=== PATIENT | female | born 1995 | race Hispanic/Latino ===

== ENCOUNTER 2022-03-10 10:44 | Inpatient (IN) | payer MEDICAID, OTHER ==
[2022-03-10] MEDS ORDERED: Ondansetron PF 4 MG/2 ML Vial IVP PRN (23:06)
[2022-03-10] MEDS ORDERED: Ibuprofen 800 MG TAB PO PRN (23:06)
[2022-03-10] MEDS ORDERED: Misoprostol 200 MCG TAB PR PRN (23:06)
[2022-03-10] MEDS ORDERED: Butorphanol Tartrate 1 MG/ML VIAL SLOW IVP PRN (23:06)
[2022-03-10] MEDS ORDERED: Acetaminophen 500 MG TAB PO PRN (23:06)
[2022-03-10] MEDS ORDERED: hydrALAZINE 20 MG/ML VIAL SLOW IVP PRN (23:06)
[2022-03-10] MEDS ORDERED: Promethazine HCl 25 MG/ML VIAL IM PRN (23:06)
[2022-03-10] MEDS ORDERED: Diphenoxylate HCl/Atropine Tablet PO PRN (23:06)
[2022-03-10] MEDS ORDERED: Carboprost 250 MCG/ML AMP IM PRN (23:06)
[2022-03-10] MEDS ORDERED: Lidocaine 1% (PF) 30 ML VIAL SC PRN (23:06)
[2022-03-10] MEDS ORDERED: Methylergonovine 0.2 MG/ML VIAL IM PRN (23:06)
[2022-03-10] MEDS ORDERED: HYDROcodone/Acetaminophen 5/325 mg Tablet PO PRN (23:06)
[2022-03-10 23:16] VITALS: BMI 37.6
[2022-03-10] MEDS: Lactated Ringer's 1,000 ML IV SCH (23:22)
[2022-03-10] MEDS ORDERED: NS w/ Oxytocin 30 units 500 ML IV SCH ×2 (23:30→23:59)
[2022-03-11] MEDS: Misoprostol 100 MCG TAB VAG SCH ×3 (00:19→17:27)
[2022-03-11 00:24] LABS: Hemoglobin 11.3 g/dL (12.0-15.5); Mean Corpuscular HGB CONC 31.8 g/dL (32.0-36.0); Mean Corpuscular Hemoglobin 26.9 pg (27.0-33.0); Mean Corpuscular Volume 84.5 fl (81.6-98.3); Mean Platelet Volume 12.9 fl (7.4-10.4); Platelet Count 223 10x3/uL (150-450); White Blood Cell (WBC) Count 8.8 10x3/uL (3.5-10.5)
[2022-03-11 00:53] LABS: Syphilis Antibody Nonreactive (Nonreactive); Syphilis Antibody Index 0.12 S/CO (<1.00 Non-Reactive)
[2022-03-11 00:54] LABS: Hep B Surf Ag Non-Reactive S/CO (NonReactive)
[2022-03-11 01:44] LABS: HBSAg Index 0.18 S/CO (0-0.99)
[2022-03-11 02:42] LABS: SARS-CoV-2 NAA Rapid Test Not Detected (NotDetected)
[2022-03-11] MEDS ORDERED: Fentanyl 2 mcg/Bup 0.1% Cadd 100 ML ONE (09:09)
[2022-03-11] MEDS ORDERED: Acetaminophen 325 MG TAB PO PRN (10:50)
[2022-03-11] MEDS ORDERED: Ondansetron PF 4 MG/2 ML Vial IVP PRN ×2 (10:50→14:09)
[2022-03-11] MEDS ORDERED: Naloxone HCl 0.4 mg/ml Vial IVP PRN ×2 (10:50)
[2022-03-11] MEDS ORDERED: Lactated Ringer's 500 ML IV PRN (10:50)
[2022-03-11] MEDS ORDERED: ePHEDrine Sulfate 50 MG/10 ML VIAL SLOW IVP PRN (10:50)
[2022-03-11] MEDS ORDERED: Moisturizing Cream (Eucerin) 113 GM JAR TOP PRN (10:50)
[2022-03-11] MEDS ORDERED: Promethazine HCl 25 MG/ML VIAL IM PRN (10:50)
[2022-03-11] MEDS ORDERED: diphenhydrAMINE 50 MG/ML VIAL IVP PRN (10:50)
[2022-03-11] MEDS ORDERED: Fentanyl 2 mcg/Bupivacaine 0.1% Cassette 100 ML EPIDURAL SCH (11:00)
[2022-03-11] MEDS ORDERED: Communication Order-Pharmacy FS SCH (11:00)
[2022-03-11] MEDS ORDERED: Fentanyl 100 MCG/2 ML VIAL ONE (12:27)
[2022-03-11] MEDS ORDERED: Lanolin Ointment 7 GM TUBE TOP PRN (14:09)
[2022-03-11] MEDS ORDERED: hydrALAZINE 20 MG/ML VIAL SLOW IVP PRN (14:09)
[2022-03-11] MEDS ORDERED: Boostrix 0.5 ML (Tdap) VIAL IM ONE (14:09)
[2022-03-11] MEDS ORDERED: diphenhydrAMINE 25 MG CAP PO PRN (14:09)
[2022-03-11] MEDS ORDERED: HYDROcodone/Acetaminophen 5/325 mg Tablet PO PRN ×2 (14:09)
[2022-03-11] MEDS ORDERED: Bisacodyl 10 MG SUPP PR PRN (14:09)
[2022-03-11] MEDS ORDERED: Milk Of Magnesia 30 ML UDCUP PO PRN (14:09)
[2022-03-11] MEDS: Lactated Ringer's 1,000 ML IV SCH (17:28)
[2022-03-11] MEDS: Ferrous Sulfate 325 MG TAB PO SCH (17:32)
[2022-03-11] MEDS: Ibuprofen 800 MG TAB PO SCH (21:21)
[2022-03-11] MEDS: Docusate 100 MG CAP PO SCH (21:21)
[2022-03-12 01:37] VITALS: TEMP 98.2
[2022-03-12] MEDS: Ibuprofen 800 MG TAB PO SCH ×2 (04:38→13:42)
[2022-03-12] MEDS: Ferrous Sulfate 325 MG TAB PO SCH (07:42)
[2022-03-12] MEDS: Docusate 100 MG CAP PO SCH (08:56)
[2022-03-12] MEDS ORDERED: Prenatal Vitamin 1 TAB PO SCH (09:00)
[2022-03-12 12:45] VITALS: BP 114/57
== END 2022-03-12 17:55 | disposition home or self-care (01) | DRG 807 ==
LOC: CSHLD 22:50 → CSHPP 03-11 17:00
PROVIDERS: ADMIT Family Medicine; ATTEND Family Medicine
PROC: 10E0XZZ Delivery of Products of Conception, External Approach (ICD-10-PCS; principal; 2022-03-11)
PROC: 10907ZC Drainage of Amniotic Fluid, Therapeutic from Products of Conception, Via Natural or Artificial Opening (ICD-10-PCS; 2022-03-11)
PROC: 3E0P7VZ Introduction of Hormone into Female Reproductive, Via Natural or Artificial Opening (ICD-10-PCS; 2022-03-11)
PROC: 0KQM0ZZ Repair Perineum Muscle, Open Approach (ICD-10-PCS; 2022-03-11)
DX: O99.214 Obesity complicating childbirth (principal); Z37.0 Single live birth; E66.9 Obesity, unspecified; Z3A.40 40 weeks gestation of pregnancy; O70.1 Second degree perineal laceration during delivery; Z20.822 Contact with and (suspected) exposure to COVID-19; O69.81X0 Labor and delivery complicated by cord around neck, without compression, not applicable or unspecified
CPT/HCPCS: 51702; 85027; 86780; 86850; 86900; 86901; 87340; J3010; J7120; U0002

== ENCOUNTER 2025-05-25 01:03 | Inpatient (IN) | payer MEDICAID, OTHER, SELFPAY ==
[2025-05-25 01:51] VITALS: BMI 39.1
[2025-05-25 02:11] LABS: Fetal Membranes Rupture RUPTURE DETECTED (No Rupture)
[2025-05-25] MEDS ORDERED: Carboprost 250 MCG/ML AMP IM PRN (02:31)
[2025-05-25] MEDS ORDERED: Ondansetron PF 4 MG/2 ML Vial IVP PRN ×3 (02:31→13:26)
[2025-05-25] MEDS ORDERED: hydrALAZINE 20 MG/ML VIAL SLOW IVP PRN ×3 (02:31→13:26)
[2025-05-25] MEDS ORDERED: Ibuprofen 800 MG TAB PO PRN (02:31)
[2025-05-25] MEDS ORDERED: Methylergonovine 0.2 MG/ML VIAL IM PRN (02:31)
[2025-05-25] MEDS ORDERED: Lidocaine 1% (PF) 30 ML VIAL SC PRN (02:31)
[2025-05-25] MEDS ORDERED: Diphenoxylate HCl/Atropine Tablet PO PRN ×2 (02:31)
[2025-05-25] MEDS ORDERED: HYDROcodone/Acetaminophen 5/325 mg Tablet PO PRN ×2 (02:31→13:26)
[2025-05-25] MEDS ORDERED: Tranexamic Acid 1,000 MG/10 ML VIAL IVP PRN (02:31)
[2025-05-25] MEDS ORDERED: Oxytocin 30 units/NS 500 ML 500 ML IV SCH (02:45)
[2025-05-25] MEDS ORDERED: diphenhydrAMINE 50 MG/ML VIAL IVP PRN (03:09)
[2025-05-25] MEDS ORDERED: Acetaminophen 325 MG TAB PO PRN (03:09)
[2025-05-25] MEDS ORDERED: Communication Order-Pharmacy FS SCH (03:15)
[2025-05-25 03:42] LABS: Hematocrit 36.5 % (34.9-44.5); Hemoglobin 11.3 g/dL (12.0-15.5); Mean Corpuscular Hemoglobin 26.7 pg (27.0-33.0); Mean Corpuscular Volume 86.3 fL (81.6-98.3); Platelet Count 220 10x3/uL (150-450); Red Blood Cell (RBC) Count 4.23 10x6/uL (3.90-5.03); White Blood Cell (WBC) Count 8.84 10x3/uL (3.5-10.5)
[2025-05-25] MEDS: Oxytocin 30 units/NS 500 ML 500 ML IV SCH ×2 (04:04→12:05)
[2025-05-25 04:17] LABS: Syphilis Antibody Index 0.08 S/CO (<1.00 Non-Reactive)
[2025-05-25 04:19] LABS: Hep B Surf Ag - L&D Non-Reactive S/CO (NonReactive)
[2025-05-25] MEDS: fentaNYL 2 mcg/Ropivacaine 0.2% Epidural 100 ML CADD EPIDURAL SCH (06:44)
[2025-05-25] MEDS ORDERED: Lanolin Ointment 7 GM TUBE TOP PRN (13:26)
[2025-05-25] MEDS ORDERED: Bisacodyl 10 MG SUPP PR PRN (13:26)
[2025-05-25] MEDS ORDERED: Benzocaine-Menthol 82.5 ML CAN TOP PRN (13:26)
[2025-05-25] MEDS ORDERED: Boostrix 0.5 ML (Tdap) VIAL (>/=7 yrs of age) IM ONE (13:26)
[2025-05-25] MEDS ORDERED: diphenhydrAMINE 25 MG CAP PO PRN (13:26)
[2025-05-25] MEDS ORDERED: Milk Of Magnesia 30 ML UDCUP PO PRN (13:26)
[2025-05-25] MEDS ORDERED: Bupivacaine 0.25% HCL 30 ML VIAL ONE (13:32)
[2025-05-25] MEDS: Ibuprofen 800 MG TAB PO SCH (13:48)
[2025-05-25] MEDS: Ferrous Sulfate 325 MG TAB PO SCH (17:53)
[2025-05-26 01:13] VITALS: TEMP 98
[2025-05-26 07:44] VITALS: BP 123/75
== END 2025-05-26 14:25 | disposition home or self-care (01) | DRG 807 ==
LOC: CSHLD/OP 01:03 → CSHLD 02:37 → CSHPP 14:05
PROVIDERS: ADMIT Family Medicine; ATTEND Family Medicine
PROC: 10E0XZZ Delivery of Products of Conception, External Approach (ICD-10-PCS; principal; 2025-05-25)
PROC: 4A1HXCZ Monitoring of Products of Conception, Cardiac Rate, External Approach (ICD-10-PCS; 2025-05-25)
DX: O42.92 Full-term premature rupture of membranes, unspecified as to length of time between rupture and onset of labor (principal); Z37.0 Single live birth; O99.214 Obesity complicating childbirth; Z3A.39 39 weeks gestation of pregnancy; Z79.899 Other long term (current) drug therapy; Z79.82 Long term (current) use of aspirin
CPT/HCPCS: 51702; 84112; 85027; 86780; 86850; 86900; 86901; 87340; 99285; J0665; J2590